=== PATIENT | female | born 1970 | race Caucasian/White ===

== ENCOUNTER 2017-07-21 22:06 | Emergency (ER) | payer OTHER ==
[2017-07-21 22:16] VITALS: BP 162/104; PULSE 90; TEMP 97.2; BMI 38.0
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
[2017-07-22] MEDS ORDERED: ACETAMINOPHEN 325 MG TABLET (FP) PO ONE (00:08)
[2017-07-22] MEDS ORDERED: ACETAMINOPHEN 325 MG TABLET (FP) ONE (00:13)
== END 2017-07-22 00:21 | disposition home or self-care (01) ==
LOC: FER 22:06
CPT/HCPCS: 70450-TC; 72125-TC; 84703; 99281-25